=== PATIENT | female | born 1945 | race Caucasian/White ===

== ENCOUNTER 2017-09-11 06:06 | Inpatient (IN) | payer OTHER, BC ==
--- NOTE | 2017-09-05 15:57 | GHP ---
[f rep st] PREOP HISTORY AND PHYSICAL DATE OF ADMISSION: 09/11/2017 PROBLEM: Right knee arthritis. HISTORY OF PRESENT ILLNESS: The patient is a 72-year-old woman with known bilateral knee degenerative arthritis. She states that she has had trouble with both knees for 20 years. In 2000, she had arthroscopic surgery on one of her knees. In 2003, she had the other knee arthroscope. She moved to [place] in 2007. Her knees have always been painful. She has trouble walking. A couple of months ago when she was trying to get up off the floor, her right knee became very painful. She had a cortisone injection in 2007. Because of persistent pain and limitations of activity and function, she will undergo a right total knee arthroplasty. PAST MEDICAL HISTORY: She is treated for borderline hypertension. She also treated herself for GERD. She has pelvic floor disorder with anterior and posterior prolapse. She also states that she has an arthritic left ankle. No history of heart disease, stents, DVT, hepatitis, sleep apnea, or bleeding problems. CURRENT MEDICATIONS: Triamterene/hydrochlorothiazide 1 tablet per day. She uses eyedrops. She also takes apple cider vinegar 4 treatment of GERD. She takes magnesium citrate daily for her bowels. ALLERGIES: Drug allergies: None. Metal allergy: None. Latex allergy: None. SOCIAL HISTORY: The patient is single. She lives alone. She does not have family in the area. She does not smoke cigarettes and occasionally drinks alcohol. She is retired. FAMILY HISTORY: Negative. PHYSICAL EXAMINATION: VITAL SIGNS: Height 5 feet 2 inches. Weight 190 pounds. BMI 34.8. EYES: The conjunctivae and sclerae are clear. She has bilateral cataract surgery with lens implants. MOUTH: Good oral hygiene. No loose teeth. CHEST: Clear. HEART: Regular rhythm. No murmurs. EXTREMITIES : Pertinent findings are limited to her lower right knee. She has full extension to 110 degrees of flexion. She is tender along the medial joint line. Her ligaments are stable. IMAGING DATA: Films from [facility] dated July 25, 2018, show advanced degenerative arthritis in both knees. She is [id number]-lm-[id number] in the medial compartments with mild varus alignment. Mild patellofemoral arthritis is present. IMPRESSION ON ADMISSION: 1. Bilateral knee degenerative arthritis. The right knee is most symptomatic. She is prepared for a right total knee arthroplasty. 2. Treatment for hypertension. 3. Self treatment for gastroesophageal reflux disease. 4. History of pelvic floor disorder with prolapse. 5. Unknown arthritic left ankle. 6. She states that she has bilateral leg venous insufficiency. She will undergo a right total knee arthroplasty. The surgery has been described to her, including the risks, complications, expectations, and recovery time. I have stressed the importance of postoperative physical therapy. She understands that a small percentage of people do not get a good result with a total knee replacement. All her questions have been answered. She lives alone and wants to go to rehab following discharge from the hospital. She consents to surgery. /[id number]/MODL MTDD
[~2017-09-11 06:06] MED LIST: ACETAMINOPHEN 325 MG TAB PO ONE; DEXAMETHASONE 4 MG/ML VIAL IVP ONE; FAMOTIDINE 20 MG TAB PO ONE; GABAPENTIN 300 MG CAP PO ONE; LIDOCAINE 1% 2 ML INJ ID PRN; LR 1,000 ML IV ONE; POVIDONE-IODINE 20 ML in SODIUM CL IRRIG SOLUTION 500 ML IRR ONE; ROPIVACAINE 0.2% 80 MG, EPINEPHrine 0.2 MG, KETOROLAC TROMETHAMINE 30 MG in SYRINGE 0 ML IU ONE; TRANEXAMIC ACID 880 MG in NS 100 ML IV ONE; ceFAZolin 2 GM/SWFI 2 GM/20 ML SYR IVP ONE
[2017-09-11] MEDS ORDERED: LR 1,000 ML IV ONE (06:14)
[2017-09-11] MEDS ORDERED: VANCOMYCIN 1 GM VIAL ONE (06:41)
[2017-09-11] MEDS ORDERED: ceFAZolin 1 GM/5 ML SYR ONE (06:41)
[2017-09-11] MEDS ORDERED: PROPOFOL/EMULSION 500 MG/50 ML BOTTLE IV ONE (06:43)
[2017-09-11] MEDS ORDERED: MIDAZOLAM 2 MG/2 ML VIAL ONE (06:43)
--- NOTE | 2017-09-11 06:58 | PDANEPAE ---
ANE History of Present Illness 72 year old female with PMH significant for HTN treated and well controlled on Triamterene/HCTZ. She does have GERD but self treats with vinegar. She is obese and denies any back problems or surgeries. She has had both regional and general anesthesia in the past without complication. Her platelet count is WNL as are the remainder of her chem 7. ANE Past Medical History - Cardiovascular History Hx Hypertension: Yes Hx Arrhythmias: No Hx Chest Pain: No Hx Coronary Artery / Peripheral Vascular Disease: No Hx CHF / Valvular Disease: No Hx Palpitations: No - Pulmonary History Hx COPD: No Hx Asthma/Reactive Airway Disease: No Hx Recent Upper Respiratory Infection: No Hx Oxygen in Use at Home: No Hx Sleep Apnea: No Sleep Apnea Screening Result - Last Documented: Negative - Neurologic History Hx Cerebrovascular Accident: No Hx Seizures: No Hx Dementia: No - Endocrine History Hx Diabetes: No - Renal History Hx Renal Disorders: No - Liver History Hx Hepatic Disorders: No - Neurological & Psychiatric Hx Hx Neurological and Psychiatric Disorders: No - Cancer History Hx Cancer: Yes Cancer History Comment: melanoma - Congenital Disorder History Hx Congenital Disorders: No - GI History Hx Gastrointestinal Disorders: Yes Gastrointestinal History Comment: gerd - Other Health History Other Health History: none - Chronic Pain History Chronic Pain: Yes (lower back,left ankle) - Surgical History Prior Surgeries: cataract ANE Review of Systems Review of Systems: - Exercise capacity METS (RN): 4 METS ANE Patient History - Allergies Allergies/Adverse Reactions: shellfish derived [shrimp] Allergy (Verified 09/11/17 06:15) Other-Enter Comments - Home Medications Home Medications: Triamterene/Hydrochlorothiazid [Triamterene-Hctz 37.5-25 mg Cp] 1 each PO DAILY 08/27/17 [Last Taken Unknown] Ascorbic Acid [Vitamin C 250 mg (*)] 250 mg PO DAILY 09/09/17 [Last Taken Unknown] Cholecalciferol Vit D3 [Vitamin D3 (*)] 1,000 units PO DAILY 09/09/17 [Last Taken Unknown] Herbals/Supplements -Info Only 1 ea PO DAILY 09/09/17 [Last Taken Unknown] Vit B Comp/C/FA/Iron/Vit E [Vitamin B Complex Tablet] 1 each PO DAILY 09/09/17 [ Last Taken Unknown] Zinc Gluconate [Zinc Chelated 50mg (*)] 50 mg PO DAILY8 09/09/17 [Last Taken Unknown] - NPO status NPO Since - Liquids (Date): 09/11/17 NPO Since - Liquids (Time): 03:00 NPO Since - Solids (Date): 09/10/17 NPO Since - Solids (Time): 20:00 - Smoking Hx Smoking Status: Never smoked - Family Anes Hx Family Hx Anesthesia Complications: none ANE Labs/Vital Signs - Vital Signs Blood Pressure: 127/81 Heart Rate: 86 Respiratory Rate: 16 O2 Sat (%): 94 Height: 157.48 cm Weight: 87.997 kg ANE Physical Exam - Airway Neck exam: FROM, short neck Mallampati Score: Class 2 Mouth exam: poor dentition - Pulmonary Pulmonary: no respiratory distress - Cardiovascular Cardiovascular: regular rate and rhythym - ASA Status ASA Status: II ANE Anesthesia Plan Anesthesia Plan: MAC, spinal Regional Anesthesia: single shot NB
--- NOTE | 2017-09-11 06:59 | PDHPUP ---
History & Physical Update H&P update statement: This history and physical update is based on an assessment of the patient which was completed after admission or registration (within 24 hours), but prior to the surgery/procedure. H&P update: H&P reviewed & patient examined, no change in patient's condition since H&P completed
[2017-09-11] MEDS ORDERED: fentaNYL 250 MCG/5 ML INJ ONE (07:32)
[2017-09-11] MEDS ORDERED: NALOXONE HCL 0.4 MG/ML INJ IVP PRN (08:04)
[2017-09-11] MEDS ORDERED: MEPERIDINE 25 MG/ML SYR IVP PRN (08:04)
[2017-09-11] MEDS ORDERED: LR 500 ML IV PRN (08:04)
[2017-09-11] MEDS ORDERED: ONDANSETRON 4 MG/2 ML VIAL IVP PRN ×2 (08:04→09:09)
[2017-09-11] MEDS ORDERED: HYDROmorphONE/DILAUDID 1 MG/ML INJ IVP PRN (08:04)
[2017-09-11] MEDS ORDERED: ONDANSETRON 4 MG/2 ML VIAL ONE (08:06)
[2017-09-11] MEDS ORDERED: DEXAMETHASONE 4 MG/ML VIAL ONE (08:06)
[2017-09-11] MEDS ORDERED: ROPIVACAINE HCL 150 MG/30 ML INJ ONE (08:26)
--- NOTE | 2017-09-11 08:57 | POSTOPPROG ---
Post Op Note Date of Operation: 09/11/17 Surgeon: Jacob Juarez Diabetes Educator: Mauro Anesthesiologist: Miriam Anesthesia: GET(General Endotracheal) Post-op Diagnosis: Right knee severe degenerative arthritis. Procedure: Right total knee arthroplasty Inf/Abcess present in the surg proc area at time of surgery?: No EBL: 50-100 (Adductor canal block)
[2017-09-11] MEDS ORDERED: PROMETHAZINE HCL 25 MG/ML INJ IVP PRN (09:09)
[2017-09-11] MEDS ORDERED: NS 500 ML IV PRN (09:09)
[2017-09-11] MEDS ORDERED: CYCLOBENZAPRINE 10 MG TAB PO PRN (09:09)
[2017-09-11] MEDS ORDERED: diphenhydrAMINE 25 MG CAP PO PRN (09:09)
[2017-09-11] MEDS ORDERED: METOCLOPRAMIDE 10 MG/2 ML VIAL IVP PRN (09:09)
[2017-09-11] MEDS ORDERED: LACTULOSE 20 GM/30 ML UDCUP PO PRN (09:09)
[2017-09-11] MEDS ORDERED: KETOROLAC 30 MG/1 ML SDV IVP PRN (09:09)
[2017-09-11] MEDS ORDERED: BISACODYL 10 MG SUPP PR PRN (09:09)
[2017-09-11] MEDS ORDERED: DIPHENOXYLATE/ATROPINE LOMOTIL 1 TAB PO PRN (09:09)
[2017-09-11] MEDS ORDERED: MAGNESIUM HYDROXIDE 30 ML UDCUP PO PRN (09:09)
[2017-09-11] MEDS ORDERED: POLYETHYLENE GLYCOL 3350 17 GM PKT PO PRN (09:09)
[2017-09-11] MEDS ORDERED: PROMETHAZINE HCL 25 MG SUPPR PR PRN (09:09)
[2017-09-11] MEDS ORDERED: TEMAZEPAM 15 MG CAP PO PRN (09:09)
[2017-09-11] MEDS ORDERED: ONDANSETRON DISINTEGRATING 4 MG TAB PO PRN (09:09)
[2017-09-11] MEDS ORDERED: LR 1,000 ML IV SCH (09:30)
--- NOTE | 2017-09-11 09:31 | GOP ---
[f rep st] OPERATIVE REPORT DATE OF OPERATION: 09/11/2017 SURGEON: Jacob Juarez MD WAREHOUSE SORTER: Jagdeep Wilkes and Matt Carrizales. ANESTHESIA: General anesthesia and adductor canal block by Dr. Celena Pineda. PREOPERATIVE DIAGNOSIS: Right knee degenerative arthritis. POSTOPERATIVE DIAGNOSIS: Right knee degenerative arthritis. PROCEDURE PERFORMED: Right total knee arthroplasty, cemented, Mehta and Nephew Journey II, posterior stabilized. FINDINGS: DESCRIPTION OF PROCEDURE: The patient was given 2 g of IV Ancef preoperatively within 60 minutes of surgery. She also received IV tranexamic acid at a dose of 10 mg/kg. She was placed on the [facility] g room table and Dr. Pineda attempted a spinal anesthetic. This was unsuccessful. She was placed sup ine and given general anesthesia. A Henriquez catheter was not used. She wore a RUSTAM stocking and SCD on the nonoperative leg. A bolster was placed under her right hip to prevent excessive external rotati on of the leg. The right lower extremity was prepped with ChloraPrep from the upper thigh tourniquet to the tips of the toes. It was draped free using sterile sheets, stockinette, and Ioban plastic ad hesive drapes. The lower leg was wrapped with compressive Coban. The leg was exsanguinated with nubia vation and a 6-inch compressive wrap, and the pneumatic tourniquet was inflated to 300 mmHg. She had a very bulky thigh and calf. The World Health Organization time-out was performed to verify the correct patient identity and the c orrect surgical side and site. The [place] time-out was also performed. The [employer] leg holding device was sterilely attached to the operating room table and used throughout the procedure to help position the knee. A straight midline incision made centered on the patella. Subcutaneous tissues were sharply divided and hemostasis was obtained using electrocautery. A medial subcutaneous flap was developed, and the capsule and synovium were opened in a medial parapatellar f ashion. Extensive degenerative changes were present in her medial compartment and in her patellofemo ral joint. The medial capsule and periosteum were elevated off the rim of the medial tibial plateau all the way around to the posteromedial corner. Her medial collateral ligament was released just donaldo ugh to balance the medial side of the knee and correct the varus alignment. In order to improve exposure, her patella was prepared first. The original thickness of the patella was measured. Peripheral osteophytes were removed. I cut a flat surface on the back of the patella. It was sized for a 35 mm resurfacing component. I removed enough bone from the patella such that t he remaining bone plus the thickness of the patellar component recreated the original thickness of th e patella. The composite thickness was 21 mm. The intramedullary alignment guide system was used to set up the distal femoral cut. The distal femu r was cut in 6 degrees of valgus. Because of a slight preoperative flexion contracture, I made a +2 mm cut on the distal femur. The sizing jig was used to determine proper femoral sizing. I shifted t he jig anteriorly 1 mm in order to accommodate a size 4 without notching the anterior cortex. The 5 in 1 cutting block was applied, and the anterior and posterior condylar cuts and chamfer cuts were ma de. The final jig was used to remove the central portion of the distal femur to accommodate the post erior stabilized femoral component. I was careful to determine proper rotation by referencing off Wh itesides line and other bony landmarks. Each cut was checked for accuracy before and after it was ma de. The femur was sized for a size 4 posterior stabilized component. Next, the tibia was prepared. The proximal tibial cut was made using the extramedullary alignment gu sena system. The cut was made in a few degrees of posterior slope. I was careful to achieve proper v arus valgus alignment and proper rotation. The posterior compartment was cleared of meniscal remnant s. Osteophytes were removed from the back of her femoral condyles. I checked the flexion extension gaps, and they were equal and rectangular. The tibia was sized for a size 3 component. With the tri al components in place, I selected a 10 mm polyethylene posterior stabilized tibial insert. The knee came to full extension and flexed to about 120 degrees. Further flexion was blocked by the bulk of her calf and thigh. There was no overstuffing in flexion. Her collateral ligaments were stable in f ull extension and 90 degrees of flexion. The trial patellar button was applied, and tracking was glory cked. She had a slight tendency for lateral tracking. I did a very minor lateral release. After th at, tracking was excellent without any digital pressure. 40 mL of the joint anesthetic cocktail were injected into the posterior capsule, the periarticular st ructures, the quadriceps muscle and tendon areas, and the subcutaneous tissues along the skin edges. A second dose of IV tranexamic acid was given at a dose of 10 mg/kg. The surfaces were prepared for cementing. They were carefully cleaned with the pulsating lavage irri gation and thoroughly dried. The CarboJet device was used to blow dry the cancellous surfaces. A do uble batch of high viscosity methylmethacrylate cement with 2 g of powdered vancomycin added was mixe d. While it was still in a doughy state, all 3 components were cemented in place. Excess cement was removed before it hardened. The 10 mm trial tibial insert was re-tried and was the proper thickness. The actual component was in serted and locked into place. The knee was thoroughly irrigated one final time with a dilute Betadin e solution. The tourniquet was deflated and total tourniquet time was 39 minutes. The procedure was completed wi thout the tourniquet. The vastus medialis portion of the extensor mechanism was repaired with several interrupted figure-of -eight #2 FiberWire sutures. The capsule and synovium were closed first with multiple interrupted fi [id number]-[id number] 0 PDS sutures, followed by a running #2 barbed Ethicon Stratafix PDO suture. The subcu taneous tissues were closed with a running 0 barbed Ethicon Stratafix Monoderm suture. The skin was closed with a running 3-0 barbed Ethicon Stratafix Monoderm subcuticular suture. The skin was sealed with half-inch Steri-Strips. The wound was covered with a large Mepilex waterproof sterile surgical dressing and a 6-inch compressive wrap. A long-leg RUSTAM stocking and SCD were applied, followed by t he cooling device. The patient wore a stocking and SCD on the opposite leg during the procedure. I used a size 4 cemented Mehta and Nephew Oxinium posterior stabilized femoral component, a size 3 ce mented tibial baseplate, a 10 mm posterior stabilized tibial insert and a 35 mm cemented round all-po lyethylene resurfacing patellar component. The estimated blood loss following inflation of the tourniquet was about 100 mL. The sponge and needle count were correct on two occasions. In the operating room while still under anesthesia, Dr. Buser administered an adductor canal block to the right leg. She was then awakened from anesthesia, transferred to her hospital [facility] and taken to PACU in satisfactory condition. There were no recognized intraoperative complications. Jagdeep Wilkes and Matt Carrizales acted as surgical assistants. Their assistance was a medical necess ity for safe completion of the procedure. Copy requested to: DO Fab Arana [employer] /[id number]/MODL
--- NOTE | 2017-09-11 10:24 | POSTANESTH ---
Post Anesthetic Evaluation Cardiovascular Status: Normal, Stable Respiratory Status: Normal, Stable Level of Consciousness/Mental Status: Can Participate in Eval Pain Control: Adequate, Prn Tx Ordered Nausea/Vomiting Control: Adequate, Prn Tx Ordered Complications Possibly Related to Anesthesia: None Noted
[2017-09-11] MEDS: oxyCODONE IR 5 MG TAB PO PRN ×2 (13:40→21:01)
[2017-09-11] MEDS: ACETAMINOPHEN 325 MG TAB PO SCH ×3 (13:40→23:17)
[2017-09-11] MEDS ORDERED: ceFAZolin 2 GM/DEXTROSE 100 ML IV SCH (14:00)
[2017-09-11] MEDS: ceFAZolin 2 GM/SWFI 2 GM/20 ML SYR IVP SCH ×2 (15:44→23:16)
--- NOTE | 2017-09-11 16:17 | ASMTCMCOM ---
CM Note CM Note Notes: Pt recommends SNF, referral faxed to [facility]. DC Plan: SNF Date Signed: 09/11/2017 04:16 PM Electronically Signed By:Deedee Berry RN
[2017-09-11] MEDS: TRANEXAMIC ACID 650 MG TAB PO SCH (16:52)
[2017-09-11] MEDS: traMADol 50 MG TAB PO PRN (16:54)
[2017-09-11] MEDS: SENNOSIDES/DOCUSATE SODIUM TAB PO SCH (21:00)
[2017-09-11] MEDS: FAMOTIDINE 20 MG TAB PO SCH (21:01)
[2017-09-11] MEDS: ASPIRIN 325 MG TAB PO SCH (21:01)
[2017-09-12] MEDS: TRANEXAMIC ACID 650 MG TAB PO SCH ×2 (00:37→09:52)
[2017-09-12] MEDS: ACETAMINOPHEN 325 MG TAB PO SCH ×2 (05:28→11:55)
[2017-09-12] MEDS: traMADol 50 MG TAB PO PRN (05:28)
--- NOTE | 2017-09-12 07:40 | PDIAF ---
- Diagnosis Diagnosis: R knee OA Code Status: Full Code - Medication Management Discharge Medications: Medications to Continue on Transfer Triamterene/Hydrochlorothiazid [Triamterene-Hctz 37.5-25 mg Cp] 1 each PO DAILY 08/27/17 [Last Taken Unknown] Ascorbic Acid [Vitamin C 250 mg (*)] 250 mg PO DAILY 09/09/17 [Last Taken Unknown] Cholecalciferol Vit D3 [Vitamin D3 (*)] 1,000 units PO DAILY 09/09/17 [Last Taken Unknown] Herbals/Supplements -Info Only 1 ea PO DAILY 09/09/17 [Last Taken Unknown] Vit B Comp/C/FA/Iron/Vit E [Vitamin B Complex Tablet] 1 each PO DAILY 09/09/17 [ Last Taken Unknown] Zinc Gluconate [Zinc Chelated 50mg (*)] 50 mg PO DAILY8 09/09/17 [Last Taken Unknown] Acetaminophen [Tylenol 325mg (*)] 650 mg PO Q6HRS tab 09/12/17 [Last Taken Unknown] Aspirin [Aspirin 325 mg (*)] 325 mg PO DAILY tab 09/12/17 [Last Taken Unknown] Ferrous Sulfate [Slow Fe 140 MG (*)] 140 mg PO DAILY tab.er 09/12/17 [Last Taken Unknown] Ondansetron Odt [Zofran Odt 4 mg (*)] 4 mg PO Q4HRS PRN tab 09/12/17 [Last Taken Unknown] Sennosides/Docusate Sodium [Senokot-S] 1 - 2 tab PO BID tab 09/12/17 [Last Taken Unknown] celeCOXIB [Celebrex (*)] 200 mg PO DAILY cap 09/12/17 [Last Taken Unknown] oxyCODONE IR [Oxycodone Ir (*)] 5 - 10 mg PO Q3HRS PRN tab 09/12/17 [Last Taken Unknown] traMADol [Ultram 50 mg (*)] 50 mg PO Q6HRS PRN tab 09/12/17 [Last Taken Unknown ] Discharge Medications: Refer to the Discharge Home Medication list for PRN reason. PICC Care - Routine: N/A - Orders Services needed: Physical Therapy Diet Recommendation: no restrictions on diet Diet Texture: Regular Texture Diet Henriquez: Not applicable Rafael Stockings Discontinue Date: 1 week Wound Care Instructions: keep clean and dry. You may shower. Activity/Weight Bearing Restrictions: as tolerated. Equipment: Zero knee while in bed as tolerated. - Follow Up Care Current Providers and Referrals: NONE *PRIMARY CARE P,. [Primary Care Provider] - Jacob Juarez MD [Medical Doctor] - 09/26/17
--- NOTE | 2017-09-12 07:40 | SOAPPROG ---
SOAP Progress Note Assessment/Plan: Assessment: Afebrile. Awake and alert. Moderate pain so far. Has walked in [place]. Dsg dry. H/H is good. Films look good. Plan:She was unsafe to go home yesterday and needed to stay overnight. DC to [facility] today. 09/12/17 07:38 Objective: Vital Signs Temp Pulse Resp BP Pulse Ox 36.6 C 77 17 113/68 95 09/12/17 04:00 09/12/17 04:00 09/12/17 04:00 09/12/17 04:00 09/12/17 04:00 Laboratory Results 09/12/17 05:19 09/11/17 09/12/17 09/13/17 05:59 05:59 05:59 Intake Total 3070 Output Total 2300 Balance 770 ICD10 Worksheet Patient Problems: Problems Problem Status Onset Osteoarthritis of right knee Acute
--- NOTE | 2017-09-12 07:55 | GDS ---
[f rep st] DISCHARGE SUMMARY ADMISSION DIAGNOSIS: Right knee degenerative arthritis. DISCHARGE DIAGNOSIS: Right knee degenerative arthritis. OPERATION PERFORMED: 09/11/2017, right total knee arthroplasty. POSTOPERATIVE COMPLICATIONS: None. CONDITION ON DISCHARGE: Improved. DESCRIPTION OF HOSPITAL COURSE: The patient was admitted to the hospital on the morning of surgery. Her admission CBC, electrolytes, BUN, and creatinine were all normal. The same day, under general a nesthesia, and adductor canal block, she underwent a right total knee arthroplasty. Postoperatively, she was treated with multimodal DVT prophylaxis, including aspirin. On the first postoperative day, her hemoglobin and hematocrit were 11.9 and 34.1. She was seen by Physical Therapy and made good pr ogress with ambulation. She was unsafe for discharge on the day of surgery and required an additiona l night for observation and additional physical therapy. By the time of discharge, she was afebrile, her wound was dry and she was independent walking with a walker. DISPOSITION: The patient is discharged to [facility]. She may progress to full weightbearing o n the right as tolerated. Continue aspirin 325 mg p.o. daily for 21 days. She has prescriptions for oxycodone and tramadol for pain control. I will see her back in the office on September 26, 2017. If there are any problems, she is to call me at the office. Copy requested to: Mandi Thomas [facility] /[id number]/MODL
[2017-09-12 08:39] VITALS: RESP 16
[2017-09-12] MEDS ORDERED: TRIAMTERENE/HCTZ 37.5/25 1 EACH CAP PO SCH (09:00)
[2017-09-12] MEDS ORDERED: FERROUS SULFATE 140 MG TAB.ER PO SCH (09:00)
[2017-09-12] MEDS: SENNOSIDES/DOCUSATE SODIUM TAB PO SCH (09:51)
[2017-09-12] MEDS: ASPIRIN 325 MG TAB PO SCH (09:52)
[2017-09-12] MEDS: FAMOTIDINE 20 MG TAB PO SCH (09:52)
[2017-09-12] MEDS: oxyCODONE IR 5 MG TAB PO PRN (11:55)
[2017-09-12 13:16] VITALS: BP 115/55; PULSE 62; TEMP 98.2; O2SAT 90
--- NOTE | 2017-09-12 16:40 | ASDISCHSUM ---
Discharge Information Plan Status:SNF Medically Cleared to Leave: Discharge Date:09/12/2017 02:55 PM CM D/C Disposition:Care Home Facility ADT D/C Disposition:Care Home Facility Projected Discharge Date:09/12/2017 11:00 AM Transportation at D/C:Wheelchair Van Discharge Delay Reason: Follow-Up Date:09/12/2017 11:00 AM Discharge Slot: Final Diagnosis: Placement Information Referral Type:*Fdc/SNF Referral ID:[id number] Provider Name:Lazara Nowak Address 1:[address] Phone Number: Address 2: Fax Number: [facility]:[place] Selection Factors: State:[place] Patient Contact Information Contact Name:ANN-MARIE Relationship: Address: Home Phone: Work Phone: Adán: [facility] Phone: [facility] [[email or web address]] Code: Email: Financial Information Financial Class: Primary Plan Desc:MEDICARE INPATIENT Primary Plan Number:[id number] Secondary Plan Desc:[facility] Secondary Plan Number:[id number] Assessment Information [facility] CM Progress Note CM Note CM Note Notes: Pt recommends SNF, referral faxed to [phone]. DC Plan: SNF Date Signed: 09/11/2017 04:16 PM Electronically Signed By:Deedee Berry RN [facility] CM Progress Note CM Note CM Note Notes: Pt medically stable for d/c to [facility]. Orders sent in [employer]. van transport scheduled for 14:30. Date Signed: 09/12/2017 04:39 PM Electronically Signed By:VALENTINE Carrillo Intervention Information
== END 2017-09-12 14:55 | DRG 470 ==
LOC: F3N 06:06
PROVIDERS: ADMIT Orthopaedic Surgery; ATTEND Orthopaedic Surgery
PROC: 0SRC0J9 Replacement of Right Knee Joint with Synthetic Substitute, Cemented, Open Approach (ICD-10-PCS; principal; 2017-09-11 07:15)
DX: M17.11 Unilateral primary osteoarthritis, right knee (principal); I10 Essential (primary) hypertension; K21.9 Gastro-esophageal reflux disease without esophagitis; E66.9 Obesity, unspecified; N81.89 Other female genital prolapse; M19.072 Primary osteoarthritis, left ankle and foot
CPT/HCPCS: 97110-GP; 97116-GP; 97161-GP; 97165-GO; C1713; G8978-GP-CJ; G8979-GP-CI; J0171; J0690; J1100; J1885; J2250; J2405; J2704; J2795; J3010; J3370